=== PATIENT | female | born 1935 | race Caucasian/White ===

== ENCOUNTER 2019-11-07 09:39 | Emergency (ER) | payer MEDICARE, BC ==
[2019-11-07 09:51] VITALS: BP 147/77; PULSE 70; RESP 18; TEMP 98.1
--- NOTE | 2019-11-07 10:27 | ED ---
Wound/Laceration HPI - General Chief Complaint: Wound/Laceration Stated Complaint: leg lac Time Seen by Provider: 11/07/19 10:00 Source: patient, EMS Mode of arrival: EMS Limitations: no limitations - History of Present Illness Initial Comments: 84yo female presents emergency department today for chief complaint of left lower leg skin tear. Patient states on November 03 she dropped a large book at a store on her anterior left jackson she states it scraped the skin. She states she has been bandaging cleaning it daily. She states it was his blood daily after the removal but stops. Patient denies any large lacerations are deep lacerations. Patient states that she believes she is ALLERGIC to tetanus vaccine, and does not want it updated today. Patient denies fevers, increasing redness or pain at the site of wound. Patient has no additional complaints. - Related Data Previous Rx's Medication Instructions Recorded Cephalexin [Keflex] 500 mg PO Q6HR 7 Days #28 cap 11/07/19 Allergies Allergy/AdvReac Type Severity Reaction Status Date / Time Penicillins Allergy Rash/Hives Verified 11/07/19 09:42 Review of Systems ROS Statement: Those systems with pertinent positive or pertinent negative responses have been documented in the HPI. ROS Other: All systems not noted in ROS Statement are negative. Past Medical History Past Medical History: No Reported History History of Any Multi-Drug Resistant Organisms: None Reported Past Surgical History: Cholecystectomy, Hysterectomy Past Psychological History: Anxiety Smoking Status: Never smoker Past Alcohol Use History: None Reported Past Drug Use History: None Reported General Exam - General Exam Comments Initial Comments: General: The patient is awake and alert, in no distress, and does not appear acutely ill. Eye: Pupils are equal, round and reactive to light, extra-ocular movements are intact. No nystagmus. There is normal conjunctiva bilaterally. No signs of icterus. Cardiovascular: There is a regular rate and rhythm. No murmur, rub or gallop is appreciated. Respiratory: Lungs are clear to auscultation, respirations are non-labored, breath sounds are equal. No wheezes, stridor, rales, or rhonchi. Musculoskeletal: Normal ROM, no tenderness. Strength 5/5. Sensation intact. Pulses equal bilaterally 2+. Neurological: A&O x 3. CN II-XII intact, There are no obvious motor or sensory deficits. Coordination appears grossly intact. Speech is normal. Skin: Skin is warm and dry and no rashes. Two irregular skin tears left anterior jackson, no exposure of underlying structures, bleeding controlled, some very mild surrounding redness. No drainage. Patient inferior tear larger roughly 6x5cm, more superior tear is 4x4cm again irregular. Psychiatric: Cooperative, appropriate mood & affect, normal judgment. Limitations: no limitations Course Vital Signs 11/07/19 09:45 Temperature 98.1 F Pulse Rate 70 Respiratory 18 Rate Blood Pressure 147/77 O2 Sat by Pulse 98 Oximetry Medical Decision Making - Medical Decision Making 84 or female presenting for left jackson bleeding skin tear. No bleeding on exam. No deep laceration. denies DM. Patient has some faint pinkness around wound,no drainage. Cannot r/o a developing cellulitis. Pt does not appear toxic. No fevers. Patient will be treated with keflex for cellulitis and discussed hoem wound care, return and importance of PCP f/u. Patient is agreeable and was discharged appearing well. Disposition Clinical Impression: Skin tear Disposition: HOME SELF-CARE Condition: Good Instructions (If sedation given, give patient instructions): Skin Tear (ED) Additional Instructions: Please use medication as discussed. Please follow-up with family doctor in the next 2 days. Change bandage daily with bacitracin or neosporin prior to applying the bandage. Please return to emergency room if the symptoms increase or worsen or for any other concerns. Prescriptions: Cephalexin [Keflex] 500 mg PO Q6HR 7 Days #28 cap Is patient prescribed a controlled substance at d/c from ED?: No Referrals: Andres Fuentes MD [Primary Care Provider] - 1-2 days Time of Disposition: 10:26
== END 2019-11-07 10:52 | disposition home or self-care (01) ==
LOC: EC 09:39
DX: S81.812A Laceration without foreign body, left lower leg, initial encounter (principal); Z88.0 Allergy status to penicillin; W20.8XXA Other cause of strike by thrown, projected or falling object, initial encounter; Y92.009 Unspecified place in unspecified non-institutional (private) residence as the place of occurrence of the external cause
CPT/HCPCS: 99282

== ENCOUNTER 2022-11-06 17:22 | Emergency (ER) | payer MEDICARE, BC ==
--- NOTE | 2022-11-06 18:20 | CT ---
EXAMINATION TYPE: CT brain jim wo con DATE OF EXAM: 11/06/2022 COMPARISON: 07/22/2021 HISTORY: fall CT DLP: 1245.1 mGycm, Automated exposure control for dose reduction was used. CONTRAST: None CT of the brain is performed utilizing 3 mm thick sections through the posterior fossa and 3 mm thick sections through the remaining calvarium. Study is performed within 24 hours of arrival to the hospital. No abnormal hyperdensity is present to suggest an acute intracranial hemorrhage. No mass lesion is evident. No acute infarcts are evident. Periventricular white matter hypodensity is present, likely on the ba sis of chronic white matter ischemic changes. Ventricles and sulci are appropriate for the patient age. Paranasal sinuses and mastoid air cells within the [id number] are clear. There is some soft tissue swelling over the right parietal occipital region. No underlying fractures are evident. IMPRESSIONS: 1. No acute intracranial process. 2. Chronic appearing periventricular white matter ischemic changes. 3. Soft tissue swelling right parieto-occipital region CT cervical spine. COMPARISON: None CT of the cervical spine is performed in the axial plane at 2 mm thick sections. Reconstructed image s in the coronal, and sagittal plane are reviewed on the computer. No acute fractures are evident. Vertebral body alignment is normal. Diffuse disc space narrowing is present throughout the cervical spine. This may be greatest at C6-7. Vertebral body heights are preserved. No spinal canal stenosis is evident. Right foraminal stenosis is present see 3 4. Bilateral foraminal stenosis from vertebral joint hypert rophy is present C4-5. IMPRESSIONS: 1. Degenerative disc changes greatest at C6-7. 2. Foraminal narrowing due to uncovertebral joint V
--- NOTE | 2022-11-06 18:39 | ED ---
General Adult HPI - General Chief complaint: Fall Stated complaint: fall Time Seen by Provider: 11/06/22 17:36 Source: family, EMS, RN notes reviewed, old records reviewed Mode of arrival: EMS Limitations: altered mental status - History of Present Illness Initial comments: 87-year-old female with fall which occurred at approximately 2:30 this afternoon . Patient does have dementia and according to the daughter has had a decline over the past several days. She did fall with head injury. Echo record does indicate that the patient is on eliquis. Patient was transported by paramedics, laceration was noted to the occipital region, she was placed in a c-collar. Also had noted a skin tear to the left jackson. I did obtain history from the daughter who is at bedside. - Related Data Home Medications Medication Instructions Recorded Confirmed Acetaminophen Tab [Tylenol] 325 mg PO Q4H PRN 07/22/21 07/22/21 Amitriptyline HCl [Elavil] 25 mg PO DAILY 07/22/21 07/22/21 Cholecalciferol [Vitamin D3 (25 50 mcg PO DAILY 07/22/21 07/22/21 Mcg = 1000 Iu)] Dicyclomine [Bentyl] 20 mg PO TID 07/22/21 07/22/21 Simethicone [Gas-X] 125 mg PO PC-TID 07/22/21 07/22/21 Previous Rx's Medication Instructions Recorded ALPRAZolam [Xanax] 0.5 mg PO DAILY PRN #2 tab 07/28/21 Apixaban [Eliquis] 5 mg PO BID #60 tab 07/28/21 Docusate [Colace] 100 mg PO DAILY PRN #4 capsule 07/28/21 Famotidine [Pepcid] 20 mg PO BID #60 tablet 07/28/21 Hydrocodone/Acetaminophen [[place] 1 tab PO Q6H #4 tab 07/28/21 2.5-325] INSULIN ASPART (NovoLOG) [NovoLOG 0 unit SQ ACHS ml 07/28/21 (formulary)] Metoprolol Tartrate [Lopressor] 25 mg PO BID #0 tab 07/28/21 amLODIPine [Norvasc] 5 mg PO DAILY tab 07/28/21 Allergies Allergy/AdvReac Type Severity Reaction Status Date / Time Penicillins Allergy Rash/Hives Verified 11/06/22 17:45 Review of Systems ROS Statement: Those systems with pertinent positive or pertinent negative responses have been documented in the HPI. ROS Other: All systems not noted in ROS Statement are negative. Past Medical History Past Medical History: No Reported History Additional Past Medical History / Comment(s): Pt has arthritis/pain in multiple joints, colon cancer with surgery twice, past htn years ago was on medication, high cholesterol but no rx d/t high HDLs, stomach ulcer when pt in her 30s. History of Any Multi-Drug Resistant Organisms: None Reported Past Surgical History: Cholecystectomy, Hysterectomy Past Anesthesia/Blood Transfusion Reactions: No Reported Reaction Past Psychological History: Anxiety Smoking Status: Never smoker Past Alcohol Use History: None Reported Past Drug Use History: None Reported - Past Family History Father Family Medical History: Myocardial Infarction ([place]) Additional Family Medical History / Comment(s): Father in his 50s from a [place] Mother Family Medical History: Cancer, CVA/TIA Additional Family Medical History / Comment(s): Colon cancer. Mother of a CVA in her 80s. General Exam Limitations: altered mental status Course Vital Signs 11/06/22 11/06/22 17:37 18:41 Temperature 98.2 F 98.6 F Pulse Rate 58 L Respiratory 20 Rate Blood Pressure 134/99 O2 Sat by Pulse 94 L Oximetry - Reevaluation(s) Reevaluation #1: 11/06/22 18:30 I did discuss the goals of care with the daughter, she did not want any further testing, no blood testing, no urinalysis, did agree to head CT and CT cervical spine. Procedures - Laceration Laceration #1 Consent Obtained: verbal consent Site: scalp Size (cm): 1 Description: linear Depth: simple, single layer Pre-repair: wound explored, deep structures intact Type of Sutures: other (Status) Number of Sutures: 2 Technique: simple, interrupted Patient Tolerated Procedure: well Medical Decision Making - Medical Decision Making Was pt. sent in by a medical professional or institution (, PA, CONVERSION WORKER, urgent care, hospital, or shelter...) When possible be specific @ -No Did you speak to anyone other than the patient for history (EMS, parent, family, police, friend...)? What history was obtained from this source @ -Patient's daughter Did you review nursing and triage notes (agree or disagree)? Why? @ -I reviewed and agree with nursing and triage notes Were old charts reviewed (outside hosp., previous admission, EMS record, old EKG, old radiological studies, urgent care reports/EKG's, shelter records)? Report findings @ -No old charts were reviewed Differential Diagnosis (chest pain, altered mental status, abdominal pain women, abdominal pain men, vaginal bleeding, weakness, fever, dyspnea, syncope, headache, dizziness, GI bleed, back pain, seizure, CVA, palpatations, mental health, musculoskeletal)? @ -[Intracranial hemorrhage, skull fracture, cervical spine spine fracture subluxation EKG interpreted by me (3pts min.). @ -As above X-rays interpreted by me (1pt min.). @ -None done CT interpreted by me (1pt min.). @ -[CT negative for acute cranial hemorrhage, no cervical fracture subluxation U/S interpreted by me (1pt. min.). @ -None done What testing was considered but not performed or refused? (CT, X-rays, U/S, labs)? Why? @ -None What meds were considered but not given or refused? Why? @ -None Did you discuss the management of the patient with other professionals (professionals i.e. , PA, CONVERSION WORKER, lab, RT, psych nurse, social media campaign manager, executive relations specialist, teacher, search and rescue officer, case resource manager)? Give summary @ -No Was smoking cessation discussed for >3mins.? @ -No Was critical care preformed (if so, how long)? @ -No Were there social determinants of health that impacted care today? How? (Homelessness, low income, unemployed, alcoholism, drug addiction, transportation, low edu. Level, literacy, decrease access to med. care, skilled nursing, rehab)? @ -No Was there de-escalation of care discussed even if they declined (Discuss DNR or withdrawal of care, Hospice)? DNR status @ -No What co-morbidities impacted this encounter? (DM, HTN, Smoking, COPD, CAD, Cancer, CVA, ARF, Chemo, Hep., AIDS, mental health diagnosis, sleep apnea, morbid obesity)? @ -[Dementia gait instability Was patient admitted / discharged? Hospital course, mention meds given and route, prescriptions, significant lab abnormalities, going to OR and other pertinent info. @ -[87-year-old female with fall, head injury. Head CT negative. Patient had laceration which was repaired with 2 gonzales. I did offer further testing on this patient but the daughter declines at this time. She states she has a visiting physician. Patient's daughter instructed to have the gonzales removed in 10-14 days. Return with any new or worsening concerns as needed. Undiagnosed new problem with uncertain prognosis? @ -No Drug Therapy requiring intensive monitoring for toxicity (Heparin, Nitro, Insulin, Cardizem)? @ -No Were any procedures done? @ -yes, laceration repair Diagnosis/symptom? @ -Closed head injury, scalp laceration Acute, or Chronic, or Acute on Chronic? @ -[Acute Uncomplicated (without systemic symptoms) or Complicated (systemic symptoms)? @ -,. Complicated Side effects of treatment? @ -No Exacerbation, Progression, or Severe Exacerbation? @ -No Poses a threat to life or bodily function? How? (Chest pain, [place], [place], pneumonia, PE, COPD, DKA, ARF, appy, cholecystitis, CVA, Diverticulitis, Homicidal, Suicidal, threat to staff... and all critical care pts) @ -Yes, fall Disposition Clinical Impression: Fall, Scalp laceration Disposition: HOME SELF-CARE Condition: Fair Instructions (If sedation given, give patient instructions): Fall Prevention for Older Adults (ED), Head Injury (ED), Staple Care (ED) Is patient prescribed a controlled substance at d/c from ED?: No Referrals: Jacky Love MD [Primary Care Provider] - 1-2 days Time of Disposition: 18:38
[2022-11-06 18:43] VITALS: BP 134/99; PULSE 58; RESP 20; TEMP 98.6
== END 2022-11-06 18:55 | disposition home or self-care (01) ==
LOC: EC 17:22
DX: S01.01XA Laceration without foreign body of scalp, initial encounter (principal); I10 Essential (primary) hypertension; F41.9 Anxiety disorder, unspecified; Z88.0 Allergy status to penicillin; Z79.899 Other long term (current) drug therapy; W18.30XA Fall on same level, unspecified, initial encounter
CPT/HCPCS: 12001; 70450; 72125; 99284